=== PATIENT | male | born 1995 | race Caucasian/White ===

== ENCOUNTER → 2023-10-03 13:14 | Outpatient (CLI) | payer OTHER, SELFPAY ==
--- NOTE | ~2023-10-03 | CT_ITS ---
EXAMINATION: CT soft tissue neck wo con DATE: 10/03/2023 13:26 INDICATION: Localized enlarged lymph nodes. TECHNIQUE: Computed tomography (CT) of the neck was performed without intravenous contrast. Automated exposure control and iterative reconstruction technique were employed. The dose-length product was 4 21.68 mGy-cm. COMPARISON: None FINDINGS: A skin marker overlies a normal sized left spinal accessory lymph node. There are no pathol ogically enlarged lymph nodes. There is mild mucosal thickening in the paranasal sinuses. There is mi ld cervical spondylosis. IMPRESSION: 1. Normal lymph node in the patient's area of concern. Reviewed, dictated and finalized at location E. ING LINE OPERATOR
== END ==
PROVIDERS: PCP Nurse Practitioner; Visit Provider Nurse Practitioner
DX: R59.0 Localized enlarged lymph nodes (principal)
CPT/HCPCS: 70490